=== PATIENT | male | born 1995 | race Caucasian/White ===

== ENCOUNTER 2018-09-26 12:21 | Emergency (ER) | payer SELFPAY ==
[~2018-09-26] VITALS: Ht 185.4 cm; Wt 77.7 kg
[~2018-09-26 12:21] MED LIST: HYDR-4011 PO; IBUP-1542 PO
[2018-09-26 12:33] VITALS: BP 153/68; PULSE 66; RESP 16; Ht 185.4 cm; Wt 77.7 kg
--- NOTE | 2018-09-26 14:54 | ERD ---
ER Documentation Chief Complaint Chief Complaint R knee 'popped out' x2d, also yesterday during basketball. no deformity HPI 23-year-old male was playing basketball and felt a pop and pain in his right knee. He said intermittent pain and sensation of irritation primarily on the medial aspect of his right knee. He has difficulty completely straightenING it. Denies any head injury, neck injury, additional injuries. Denies any calf swelling, shortness of breath, deficits. ROS All systems reviewed and are negative except as per history of present illness. Medications Home Meds Active Scripts Hydrocodone/Acetaminophen ([place] 5-325 Tablet) 1 Each Tablet, 1 TAB PO Q6H PRN for PAIN, #12 TAB Prov:ELENA LIN MD 09/26/18 Ibuprofen* (Motrin*) 600 Mg Tab, 600 MG PO Q6H PRN for PAIN, #30 TAB Prov:ELENA LIN MD 09/26/18 Allergies Allergies: Coded Allergies: No Known Allergy (Unverified , 09/26/18) FmHx Family History: No diabetes, No coronary disease, No other Physical Exam Vitals Vital Signs Date Temp Pulse Resp B/P (MAP) Pulse Ox O2 O2 Flow FiO2 Time Delivery Rate 09/26/18 98.2 66 16 153/68 99 12:33 (96) Physical Exam Const: No acute distress Head: Atraumatic Eyes: Normal Conjunctiva ENT: Normal External Ears, Nose and Mouth. Neck: Full range of motion. No meningismus. Resp: Clear to auscultation bilaterally Cardio: Regular rate and rhythm, no murmurs Abd: Soft, non tender, non distended. Normal bowel sounds Skin: No petechiae or rashes Back: No midline or flank tenderness Ext: No cyanosis, or edema. Mild tenderness on the medial joint line. No effusion. No deformities. No calf swelling or Homans sign. No appreciable deficits and normal range of motion. Neur: Awake and alert Psych: Normal Mood and Affect Procedures/MDM X-ray right knee 3V Interpreted by me: Bones: No fracture Joints: No dislocation Foreign body: None. Impression normal right knee x-ray Presents in the night with knee brace and crutches. Patient was treated with ibuprofen, continuation of brace and crutches as necessary. Patient has signs symptoms right knee sprain, possible meniscal injury. He is advised to see primary doctor and orthopedist for persistent pain despite rest, ice, NSAIDs. He has no signs of septic arthritis, fracture, dislocation, deficits or ischemia or DVT. Departure Diagnosis: Primary Impression: Knee injury Condition: Stable Patient Instructions: Knee Pain, Meniscus Injury (Possible), Knee Sprain Referrals: DOCTOR,NOT ON STAFF (PCP) LESIA MORAN MD [facility] Hours: Wed-Wed 9:00 AM - 5:00 PM Additional Instructions: X-ray read as normal. Possible mild meniscal injury. Recommend ice, rest, anti-inflammatories and orthopedic follow-up for persistent pain despite conservative treatment over the next week. Recheck otherwise for redness, fevers, new worsening symptoms. ELENA LIN MD Sep 26, 2018 14:54
== END 2018-09-26 14:58 | disposition home or self-care (01) ==
LOC: E/R 12:21
DX: S89.91XA Unspecified injury of right lower leg, initial encounter (principal); X58.XXXA Exposure to other specified factors, initial encounter; Y92.310 Basketball court as the place of occurrence of the external cause
CPT/HCPCS: 73562